=== PATIENT | female | born 1975 | race Caucasian/White ===

== ENCOUNTER 2017-01-16 07:33 | Observation (INO) | END 2017-01-17 19:17 | disposition home or self-care (01) | DX: O03.9 Complete or unspecified spontaneous abortion without complication (principal) | CPT/HCPCS: 36415; 76801; 76817; 76830; 76856; 81001; 84702; 84703; 85025; 86900; 86901; 99285; G0378 ==

== ENCOUNTER 2018-10-30 17:43 | Inpatient (IN) | payer MEDICAID ==
[~2018-10-30] VITALS: Ht 162.6 cm; Wt 87.0 kg
[~2018-10-30 17:43] MED LIST: IBUP-1542 PO
[2018-10-30] MEDS ORDERED: PNV11TAB PO (18:05)
[2018-10-30 18:06] VITALS: BP 144/84; PULSE 75; RESP 18; Ht 162.6 cm; Wt 87.0 kg
--- NOTE | 2018-10-30 18:56 | TRIAGE ---
OB Triage Datetime Report Generated by CPN: 10/30/2018 18:56 Datetime: 10/30/2018 18:40 Labor Evaluation Frequency: OCCAS Monitor Mode: External Duration (sec)2399: 60-80 Quality: Mild Pattern: Normal: <= 5 Contractions in 10 Minutes Resting Tone [place]: Relaxed Heart Rate FHR Baseline Rate: 140 Monitor Mode: External US FHR Baseline Changes: No Baseline Change Variability: Moderate 6-25 bpm Accelerations: 15X15 Decelerations: None Category: Category I Datetime: 10/30/2018 18:11 Assessment Type: Triage Maternal Assessment Level of Consciousness: Fully Conscious DTR's/Clonus: DTRs 2+; No Clonus Headache: Denies Blurred Vision: No Respiratory Effort: Unlabored; Regular Rhythm; Equal Expansion Breath Sounds, Left: Clear and Equal Breath Sounds, Right: Clear and Equal Nausea/Vomiting: Denies RUQ Epigastric Pain: Denies Lower Extremities Edema: None Degree: None Upper Extremities Edema: None Degree: None Facial Edema: None Fall Risk Assessment History of Falling: (0) No Secondary Diagnosis: (0) No Ambulatory Aid: (0) Bedrest/Nurse Assist IV Therapy: (0) No Gait: (0) Normal/Bedrest/Immobile Mental Status: (0) Oriented to Own Ability Datetime: 10/30/2018 18:09 Time of Arrival: 10/30/2018 17:40 Arrived By: Ambulatory Arrived From: Office Chief Complaint: psot dates and elevated bp's Movement: Present Contractions: Denies/Absent Rupture of Membranes: Denies Vaginal Bleeding: None Vaginal Discharge: Denies Recent Sexual Intercouse: Denies Abdominal Trauma: Not Applicable Patient Complaints: Other Initial Plan: nst bpp efw pih labs
[2018-10-30] MEDS ORDERED: METHYLERGONOVINE 0.2 MG INJ IM PRN (19:00)
[2018-10-30] MEDS ORDERED: MISOPROSTOL 200 MCG TAB PR PRN (19:00)
[2018-10-30] MEDS ORDERED: OXYTOCIN 30 UNITS/LR 500 ML IV PRN (19:00)
[2018-10-30] MEDS ORDERED: CARBOPROST 250 MCG INJ IM PRN (19:00)
[2018-10-30] MEDS ORDERED: OXYTOCIN 30 UNITS/LR 500 ML IV SCH ×3 (19:00→20:00)
[2018-10-30] MEDS ORDERED: LIDOCAINE 1% (MPF) 30 ML INJ INJ PRN (19:00)
[2018-10-30] MEDS ORDERED: BUTORPHANOL 2 MG INJ IV PRN (19:00)
[2018-10-30] MEDS ORDERED: IBUPROFEN 600 MG TAB PO PRN (19:00)
[2018-10-30] MEDS ORDERED: MAGNESIUM SULFATE 4 GM/100 ML 100 ML IV ONE (20:00)
[2018-10-30] MEDS ORDERED: hydrALAzine 20 MG INJ IV PRN (20:00)
[2018-10-30] MEDS: LACTATED RINGER'S 1,000 ML IV SCH (20:18)
[2018-10-30] MEDS: MAGNESIUM SULFATE 20 GM/500 ML 500 ML IV SCH (20:59)
[2018-10-31] VITALS (11 sets, daily range): BP systolic 122–145; BP diastolic 71–88; PULSE 74–94; RESP 16–19
[2018-10-31] MEDS: LACTATED RINGER'S 1,000 ML IV SCH ×2 (02:50→10:57)
--- NOTE | 2018-10-31 04:02 | HP ---
Date/Time of Note Date/Time of Note DATE: 10/31/18 TIME: 03:56 OB - History Hx of Present Free Text/Dictation 10/30/2018 : 10 Para: 7 Care: Good Care Obstetrical Complications: Pre-eclampsia, Other (Advanced maternal age grand multiparous, PIH) Other Concerns: 43-year-old G 10 P7 with IUP at 40 weeks and 5 days and care with [facility] she was initially scheduled for induction however she presented in labor. Antepartum course was completed by AMA, grand multiparous as well as post dates and PIH. She denies any headache, blurred vision, epigastric pain or right upper quadrant pain. She presented in labor. GBS negative. Past Family/Social History * Past Medical, Surgical, Family and Obstetric Histories reviewed from chart. Blood Type: O+ Rubella: immune RPR/VDRL: Negative GBS Status: Negative HBsAG: Negative OB Admission Exam Vital Signs Vital Signs Vital Signs Date Temp Pulse Resp B/P (MAP) Pulse Ox O2 O2 Flow FiO2 Time Delivery Rate 10/30/18 98.2 75 18 144/84 Room Air 18:06 (104) Physical Exam HEENT: WNL Lungs: Clear Abdomen: WNL Extremities: Normal Reflexes: Normal Cervical Dilatation: 1cm Effacement: 50% Station: -3 Membranes: Intact Heart Rate: 130's Accelerations: Accelerations Present Decelerations: No Decelerations Varibility: Moderate Contractions on Admission: 6-10 Minutes Apart Intensity: Moderate Last 72 hours Lab Results CBC & BMP 10/30/18 18:00 Liver Function Test 10/30/18 18:00 Alanine Aminotransferase (ALT/SGPT) 28 Albumin 3.5 Alkaline Phosphatase 183 H Aspartate Amino Transf (AST/SGOT) 26 Direct Bilirubin 0.00 Total Protein 6.4 Magnesium Level Test 10/31/18 02:56 Magnesium Level 4.8 H OB Assessment/Plan Reason for admission: active labor Other Assessment: IUP 40 weeks and 5 days post date AMA PIH, Elevated diastolic BP noted in the severe range. Asymptomatic,. PIH labs , slight thrombocytopenia Start on Magnesium for seizure prophylaxis Anticipate TONNY CAO MD Oct 31, 2018 04:02
--- NOTE | 2018-10-31 04:05 | LDN ---
Date/Time of Note Date/Time of Note DATE: 10/31/18 TIME: 04:03 Delivery Summary 10/31/2018 NC x 1. compound presentation noted Weeks of Gestation 40 weeks aned 5 days Placenta Delivered: Spontaneously Meconium: none Episiotomy: No Perineal laceration: 0 Laceration repair: N/a Anesthesia type: None Sponge & Needle done & correct: Yes All needle counts correct: Yes Any foreign bodies felt in the: No Infant Delivery Information Sex Infant Sex: female Apgars 1 Minute: 8 5 Minute: 9 Suctioning Nose & mouth suctioned at elen: Yes Delee suction performed: Yes Umbilical Cord Umbilical cord with: 3 Vessels Cord presentations: nuchal cord Nuchal cord present X: 1 Cord Blood was obtained: Yes TONNY CAO MD Oct 31, 2018 04:04
[2018-10-31] MEDS ORDERED: OXYTOCIN 30 UNITS/LR 500 ML IV SCH (04:10)
[2018-10-31] MEDS ORDERED: ONDANSETRON 4 MG INJ IV PRN (04:30)
[2018-10-31] MEDS ORDERED: CARBOPROST 250 MCG INJ IM PRN (04:30)
[2018-10-31] MEDS ORDERED: HYDROCODONE/APAP (5/325) TAB PO PRN (04:30)
[2018-10-31] MEDS ORDERED: ACETAMINOPHEN 325 MG TAB PO PRN (04:30)
[2018-10-31] MEDS ORDERED: NACL 0.9% 3 ML SYG IV SCH (04:30)
[2018-10-31] MEDS ORDERED: DIPHENHYDRAMINE 25 MG CAP PO PRN (04:30)
[2018-10-31] MEDS ORDERED: ZOLPIDEM 5 MG TAB PO PRN (04:30)
[2018-10-31] MEDS ORDERED: OXYTOCIN 30 UNITS/LR 500 ML IV PRN (04:30)
[2018-10-31] MEDS ORDERED: LANOLIN HPA 1 PKT TOP PRN (04:30)
[2018-10-31] MEDS ORDERED: METHYLERGONOVINE 0.2 MG INJ IM PRN (04:30)
[2018-10-31] MEDS ORDERED: MISOPROSTOL 200 MCG TAB PR PRN (04:30)
[2018-10-31] MEDS ORDERED: WITCH HAZEL/GLYCERIN PAD PR PRN (04:30)
[2018-10-31] MEDS: MAGNESIUM SULFATE 20 GM/500 ML 500 ML IV SCH (06:13)
[2018-10-31] MEDS: IBUPROFEN 600 MG TAB PO SCH ×4 (06:14→23:49)
[2018-10-31] MEDS: SENNA/DOCUSATE NA (8.6MG/50MG) TAB PO SCH ×2 (10:11→21:01)
--- NOTE | 2018-10-31 12:35 | QN ---
Documentation Comment day 0 Afebrile Vital signs are stable. Her blood pressures running within normal. Mostly 120s 130s over 70s, denies headache blurry vision or epigastric pain. Recommended to DC magnesium sulfate 12 hours postdelivery DEVON GARDNER MD Oct 31, 2018 12:35
--- NOTE | 2018-10-31 18:21 | NUR ---
eoss: vss, fundus firm, lochia small, ambulating in room with steady gait, motrin controlls pain, voiding without difficulty, bonding well and frequently with baby, chuckie po food and fluids without difficulty, denies h/a, epigastric pain, dizziness, seen by dr gómez earlier in shift.
[2018-11-01] VITALS: BP 130/63; PULSE 78; RESP 18
[2018-11-01 04:35] VITALS: BP 121/59; PULSE 69; RESP 16
[2018-11-01] MEDS: IBUPROFEN 600 MG TAB PO SCH ×4 (06:06→23:37)
--- NOTE | 2018-11-01 06:55 | NUR ---
EOSS. PT. STABLE. NO COMPLAINT OF PAIN OR ANY DISTRESS NOTED AT THIS TIME. BIONDING WITH HER BABY. MOVING TOWARDS EXPECTED GOALS.
[2018-11-01 08:00] VITALS: BP 110/67; PULSE 60; RESP 18
--- NOTE | 2018-11-01 10:07 | QN ---
Documentation Comment day 1 Afebrile Vital signs are stable Abdomen soft Uterus firm Lochia normal Extremities normal Ambulation encouraged Plan of possible a.m. discharge discussed DEVON GARDNER MD Nov 01, 2018 10:07
[2018-11-01] MEDS: SENNA/DOCUSATE NA (8.6MG/50MG) TAB PO SCH ×2 (10:37→22:02)
[2018-11-01 16:00] VITALS: BP 135/86; PULSE 67; RESP 18
--- NOTE | 2018-11-01 18:37 | NUR ---
EOSS CONDITION IS STABLE. FUNDUS IS FIRM NO EXCESSIVE BLEEDING. BREAST FEEDING ONLY THIS SHIFT PATIENT STATES BABY DOES NOT LIKE THE FORMULA. MEDICATED WITH MOTRIN AT 1800 FOR CRAMPING. BONDING WELL WITH BABY
[2018-11-01 20:10] VITALS: PULSE 77
[2018-11-02 04:20] VITALS: BP 106/62; PULSE 62; RESP 18
--- NOTE | 2018-11-02 05:36 | NUR ---
eoss; Patient stable, bonding, well the , may going home today with the
[2018-11-02] MEDS: IBUPROFEN 600 MG TAB PO SCH ×3 (06:00→18:00)
[2018-11-02 07:40] VITALS: BP 128/75; PULSE 78; RESP 18
[2018-11-02] MEDS ORDERED: VARICELLA VACCINE LIVE/PF 1,350 UNIT/0.5 ML ML SC* ONE (09:00)
[2018-11-02] MEDS ORDERED: DIPHTH/TET/ACEL PERTUSS (ADULT) 0.5 ML VIAL IM* ONE (09:00)
[2018-11-02] MEDS ORDERED: MEASLES,MUMPS,RUBELLA VACCINE INJ SC* ONE (09:00)
[2018-11-02] MEDS: SENNA/DOCUSATE NA (8.6MG/50MG) TAB PO SCH (09:49)
[2018-11-02 15:45] VITALS: BP 124/72; PULSE 67; RESP 18
--- NOTE | 2018-11-02 17:30 | NUR ---
DISCHARGE INSTRUCTIONS GIVEN TO THE PATIENT.THE PATIENT VERBALIZED UNDERSTANDING OF INSTRUCTIONS.REITERATED TO THE PATIENT THE IMPORTANCE OF TAKING A SHOWER DAILY AND KEEPING VAGINAL AREA CLEAN THEREAFTER.GIVEN EDUCATION ABOUT SIGNS OF INFECTION AND WHAT TO DO.PATIENT VERBALIZED UNDERSTANDING.
--- NOTE | 2018-11-02 17:43 | DS ---
Date/Time of Note Date/Time of Note DATE: 11/02/18 TIME: 17:41 Discharge Summary Admission/Discharge Info Admit Date/Time Oct 30, 2018 at 19:03 Discharge Date/Time November 02, 2018 at 1730 Discharge Diagnosis Post normal vaginal delivery day 2 Patient Condition: Good Consults None Procedures Normal vaginal delivery Hx of Present Illness Term admitted to hospital for delivery Hospital Course Satisfactory recovery uneventful Home Meds Reported Medications [id number] ( 19) 1 Each Tablet, 1 TAB PO DAILY, TAB 10/30/18 Discontinued Scripts Ibuprofen* (Ibuprofen*) 600 Mg Tablet, 600 MG PO Q6H PRN for PAIN LEVEL 4-6 for 7 Days, TAB Prov:DEVON GARDNER MD 01/17/17 Follow-up Plan Post instruction given recommended to make appointment to be seen at the office in 2 weeks Primary Care Provider Care Physician No Primary DEVON GARDNER MD Nov 02, 2018 17:42
--- NOTE | 2018-11-02 18:40 | NUR ---
DISCHARGED HOME WITH BABY IN HER ARMS VIA WHEELCHAIR.
== END 2018-11-02 18:40 | disposition home or self-care (01) | DRG 807 ==
LOC: OBT 17:43 → L-D 17:48 → OBT 18:50 → L-D 19:03 → PP1 10-31 05:08
PROVIDERS: ADMIT Obstetrics & Gynecology; ATTEND Obstetrics & Gynecology
PROC: 10E0XZZ Delivery of Products of Conception, External Approach (ICD-10-PCS; principal; 2018-10-31)
PROC: 3E033VJ Introduction of Other Hormone into Peripheral Vein, Percutaneous Approach (ICD-10-PCS; 2018-10-31)
DX: O48.0 Post-term pregnancy (principal); Z37.0 Single live birth; Z3A.40 40 weeks gestation of pregnancy; O69.81X0 Labor and delivery complicated by cord around neck, without compression, not applicable or unspecified
CPT/HCPCS: 76815; 76818; 80053; 81001; 83735; 84560; 85014; 85018; 85025; 85384; 85610; 85730; 86592; 86850; 86900; 86901; 86920; 87340; 90716; G0463; J2590; J3475; J7120